=== PATIENT | female | born 2000 | race Caucasian/White ===

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

== ENCOUNTER → 2022-04-19 08:57 | Outpatient (BNVA) | payer MEDICAID, SELFPAY | PROVIDERS: Family Provider Family Medicine; PCP Family Medicine; Visit Provider Nurse Practitioner Women's Health | DX: Z34.90 Encounter for supervision of normal pregnancy, unspecified, unspecified trimester (principal); F33.1 Major depressive disorder, recurrent, moderate | CPT/HCPCS: 81000 ==

== ENCOUNTER → 2022-05-07 15:00 | Outpatient (BNVA) | payer MEDICAID, SELFPAY | PROVIDERS: Family Provider Family Medicine; PCP Family Medicine; Visit Provider Obstetrics & Gynecology | DX: Z34.90 Encounter for supervision of normal pregnancy, unspecified, unspecified trimester (principal) | CPT/HCPCS: 82950; 84315; 85025; 85027; 87340 ==

== ENCOUNTER → 2022-05-12 09:00 | Outpatient (BNVA) | payer MEDICAID, SELFPAY | PROVIDERS: Family Provider Family Medicine; PCP Family Medicine; Visit Provider Obstetrics & Gynecology | DX: Z34.90 Encounter for supervision of normal pregnancy, unspecified, unspecified trimester (principal) | CPT/HCPCS: 82951; 82952 ==

== ENCOUNTER → 2022-05-19 09:19 | Outpatient (BNVA) | payer MEDICAID, SELFPAY | PROVIDERS: Family Provider Family Medicine; PCP Family Medicine; Visit Provider Obstetrics & Gynecology | DX: Z36.9 Encounter for antenatal screening, unspecified (principal) | CPT/HCPCS: 76816 ==

== ENCOUNTER → 2022-06-04 15:54 | Outpatient (BNVA) | payer MEDICAID, SELFPAY | PROVIDERS: Family Provider Family Medicine; PCP Family Medicine; Visit Provider Obstetrics & Gynecology | DX: Z34.90 Encounter for supervision of normal pregnancy, unspecified, unspecified trimester (principal) | CPT/HCPCS: 84315; 85025 ==

== ENCOUNTER → 2022-06-18 14:58 | Outpatient (BNVA) | payer MEDICAID, SELFPAY | PROVIDERS: Family Provider Family Medicine; PCP Family Medicine; Visit Provider Nurse Practitioner Women's Health | DX: Z34.93 Encounter for supervision of normal pregnancy, unspecified, third trimester (principal) | CPT/HCPCS: 81000 ==

== ENCOUNTER → 2022-06-29 10:30 | Outpatient (BNVA) | payer MEDICAID, SELFPAY | PROVIDERS: Family Provider Family Medicine; PCP Family Medicine; Visit Provider Obstetrics & Gynecology | DX: Z34.93 Encounter for supervision of normal pregnancy, unspecified, third trimester (principal) | CPT/HCPCS: 84315; 87081 ==

== ENCOUNTER 2022-07-09 16:01 | Outpatient (CLI) | payer MEDICAID, SELFPAY ==
--- NOTE | 2022-07-09 16:28 | ECG_ITS ---
[facility] Test Date: 2022-07-09 Pat Name: Flaquita Webb Department: Room: Gender: Female Travel Guide: : 2000 Requested By: Tyron Silva Order Number: [id number] Janene MD: Yves Page M.D. Measurements Intervals [place] Rate: 108 P: 4 ME: 111 QRS: 56 QRSD: 82 T: -6 QT: 297 QTc: 399 Interpretive Statements SINUS TACHYCARDIA WITH SHORT ME INTERVAL NONSPECIFIC T-WAVE ABNORMALITY No previous ECG available for comparison Electronically Signed On 07-09-2022 17:06:44 CDT by Yves Page M.D. [id number]
== END 2022-07-09 16:02 | disposition home or self-care (01) ==
PROVIDERS: PCP Family Medicine; Visit Provider Obstetrics & Gynecology
DX: O99.419 Diseases of the circulatory system complicating pregnancy, unspecified trimester (principal); R00.2 Palpitations; R00.0 Tachycardia, unspecified; Z3A.00 Weeks of gestation of pregnancy not specified
CPT/HCPCS: 81000; 93005

== ENCOUNTER → 2022-07-16 14:30 | Outpatient (BNVA) | payer MEDICAID, SELFPAY | PROVIDERS: PCP Family Medicine; Visit Provider Obstetrics & Gynecology | DX: Z34.90 Encounter for supervision of normal pregnancy, unspecified, unspecified trimester (principal) | CPT/HCPCS: 84315 ==

== ENCOUNTER → 2022-07-27 09:23 | Outpatient (BNVA) | payer MEDICAID, SELFPAY | PROVIDERS: PCP Family Medicine; Visit Provider Obstetrics & Gynecology | DX: Z34.90 Encounter for supervision of normal pregnancy, unspecified, unspecified trimester (principal) | CPT/HCPCS: 81000 ==

== ENCOUNTER 2022-07-29 17:46 | Inpatient (IN) | payer MEDICAID, SELFPAY ==
[2022-07-29] VITALS (10 sets, daily range): BP systolic 101–124; BP diastolic 55–84; PULSE 80–107; RESP 16; BMI 29.9
[2022-07-29 19:03] LABS: Basophils % 0.1 %; Eosinophils # 0.1 10^3/uL (0.0-0.8); Eosinophils % 1.1 %; Hematocrit 29.4 % (37.0-47.0); Hemoglobin 9.2 g/dL (11.5-15.3); Lymphocytes # 2.1 10^3/uL (1.5-6.5); Lymphocytes % 18.6 %; Mean Corpuscular HGB Conc 31.3 g/dL (30.0-36.0); Mean Corpuscular Hemoglobin 26.9 pg (28.0-34.0); Mean Platelet Volume 10.7 fL (7.4-10.4); Monocytes # 0.8 10^3/uL (0.2-0.9); Monocytes % 6.7 %; Neutrophils # 8.26 10^3/uL (1.8-8.0); Neutrophils % 73.2 %; Nucleated Red Blood Cells % 0 %; Platelet Count 330 10^3/cmm (130-400); Red Blood Count 3.42 10^6/uL (4.1-5.3); Red Cell Distribution Width 14.6 % (12.1-15.1); White Blood Count 11.3 10^3/uL (4.5-13.0)
[2022-07-29 19:18] LABS: Slide Review Slide Review Perform
[2022-07-29] MEDS: miSOPROStol 100 mcg tablet 25 MCG VAGINAL (19:57)
[2022-07-29] MEDS: acetaminophen 325 mg Tablet 650 MG PO (20:08)
[2022-07-29] MEDS: alum-mag-hydroxide-sime 30 mL UDC PO (22:13)
[2022-07-30] VITALS (82 sets, daily range): BP systolic 88–137; BP diastolic 51–84; PULSE 65–116; RESP 14–17; TEMP 36.8; O2SAT 94–99
[2022-07-30] MEDS: miSOPROStol 100 mcg tablet 25 MCG VAGINAL ×2 (00:32→04:38)
[2022-07-30] MEDS: TRAMadol 50 mg Tablet PO (00:56)
[2022-07-30] MEDS: alum-mag-hydroxide-sime 30 mL UDC PO (06:01)
[2022-07-30] MEDS: fentaNYL 50 mcg/mL INJ 2mL IVP (08:26)
[2022-07-30] MEDS: ondansetron 2 mg/ML SDV 2 mL 4 MG IVP ×2 (08:40→18:01)
[2022-07-30] MEDS: dextrose 5%-lactated ringers 1,000 ML 125 ML IV (08:41)
[2022-07-30] MEDS: lactated ringers 1,000 ML 999 ML IV ×2 (08:44→10:18)
--- NOTE | 2022-07-30 10:23 | ANES.PREANE2 ---
Pre-Anesthetic Assessment Height/Weight: Height 1.73 m Weight 89.358 kg Pulse Resp BP Pulse Ox O2 Del Method 86 17 137/75 98 Room Air 07/30/22 10:17 07/30/22 08:26 07/30/22 10:12 07/30/22 10:17 07/29/22 18:12 Familial anesthetic complications: none Was Beta Nick taken within 24 hours: N/A Was Clonidine taken within 24 hours: N/A Social No alcohol and No tobacco Exam alert, oriented x 3, clear to auscultation bilaterally and regular rate & rhythm Airway Submandibular: within normal limits Cervical ROM: within normal limits Mallampati: Class II Dentition: full Neuropsych Anxiety and Depression Anesthetic Plan ASA status: 2 Anesthesia: Regional (specify below) (Labor Epidural) Medications/Allergies Home Medications Medication Instructions Recorded Confirmed Last Taken Type prenat.vits,radha,sij-embw-jvylh 1 tab PO DAILY 04/19/22 07/29/22 Unknown History famotidine 20 mg PO PRN PRN (Drug) Ingestion 07/29/22 07/29/22 07/28/22 21:00 History Allergies Allergy/AdvReac Type Severity Reaction Status Date / Time Sulfa (Sulfonamide Allergy Rash, Verified 07/29/22 18:18 Antibiotics) issues breathing Current Medications Generic Name Dose Route Start Last Admin Trade Name Freq PRN Reason Stop Dose Admin Acetaminophen 650 mg 07/29/22 18:35 07/29/22 20:08 Acetaminophen 325 Mg Tablet PO 650 mg Q6H PRN Administration MILD TO MODERATE PAIN Al Hydrox/Mg Hydrox/Simethicone 30 ml 07/29/22 18:35 07/30/22 06:01 Udhe-Ciz-Vxfrtmeqc-Boo 30 Ml Udc PO 30 ml Q4H PRN Administration INDIGESTION Fentanyl 25 - 100 mcg 07/29/22 18:35 07/30/22 08:26 Fentanyl 50 Mcg/Ml Inj 2ml IVP 25 mcg Q1H PRN Administration SEVERE PAIN Dextrose/Lactated Ringer's 1,000 mls @ 125 mls/hr 07/29/22 18:35 07/30/22 08:41 Dextrose 5%-Lactated Ringers IV 125 mls/hr .Q8H PRN Administration per label comments Lactated Ringer's 1,000 mls @ 999 mls/hr 07/30/22 08:56 07/30/22 10:18 Lactated Ringers IV 999 mls/hr .Q1H1M PRN Administration See label comments Ropivacaine 100 mg in 50 mls @ 10 mls/hr 07/30/22 08:56 07/30/22 09:52 Naropin Syringe EPIDURAL 10 mls/hr .Q5H PRN Administration LABOR PAIN Ondansetron HCl 4 mg 07/29/22 18:35 07/30/22 08:40 Ondansetron 2 Mg/Ml Sdv 2 Ml IVP 4 mg Q4H PRN Administration NAUSEA AND VOMITING PFSH Anesthesia Medical History Major depressive disorder, recurrent, moderate Diagnosed in 2019 and controlled on medications managed by behavioral health care. No pertinent past medical history Denies diabetes, asthma, hypertension, seizures, DVT/PE PCP: Dr. Syed Surgical History No history of previous surgery Family History Grandmother Diabetes Maternal grandmother and maternal great grandmother Thyroid condition maternal Ovarian cancer maternal, diagnosed at age 70 Breast cancer maternal great grandmother Heart disease paternal Family/Other Diabetes maternal aunts Thyroid condition maternal aunt Breast cancer maternal great aunt Heart disease patenernal uncle Grandfather Diabetes Paternal grandfather and paternal great grandfather Hyperlipidemia maternal Hypertension maternal Stroke maternal great grandfather Colon cancer maternal, diagnosed at age 36 Heart disease paternal and maternal Mother Thyroid condition Denies family history of Uterine cancer Social History Smoking and tobacco status: never smoked Substance/Drug Use: never Additional social history: . Female Reproductive History : 1 Spontaneous abortions: No Data Anesthesia 07/29/22 18:10 Short CBC 07/29/22 Range/Units 18:10 WBC 11.3 (4.5-13.0) 10^3/uL Hgb 9.2 L (11.5-15.3) g/dL Hct 29.4 L (37.0-47.0) % MCV 86.0 (81-99) fl Plt Count 330 (130-400) 10^3/cmm Neut % (Auto) 73.2 % Neut # (Auto) 8.26 H (1.8-8.0) 10^3/uL Cardiac Studies: No Data to Display Anesthesia Procedures Epidural Time Out Performed: Yes Consents Signed: Procedure Consent Consent: requested by attending/covering physician, from patient, risks and benefits reviewed and patient agrees to proceed Lumbar Level: L3-L4 Epidural procedure: sterile prep of area, 1% lidocaine to numb the area, 18 g needle, neg for paresthesia, test dose given, 1.5% xylocaine 1:200k epi, 0.2% Ropivacaine bolus ml (5), placed PCEA, no systemic response, sterile dressing applied and 0.2% Ropiavacaine @ mls/hr (10) Additional Comments: QIANA at 4cm, cath at 9cm
[2022-07-30] MEDS: lidocaine 2% INJ 20 mL INJECTION (18:38)
--- NOTE | 2022-07-30 19:12 | PM.OBGYHP ---
Providers/Chief Complaint Admitting Physician: Lobito Dietz MD Primary EXECUTIVE MEETING MANAGER: Tyron Delacruz MD Primary Care Provider: Jackie Dumont MD Chief Complaint: IOL HPI EXECUTIVE MEETING MANAGER History of Present Illness Flaquita Webb is a 22 year old female G1 at 40 w 1 d no complications admitted for elective induction of labor no c/o GBS negative Present Details : 1 Para: 0 Medications/Allergies Home Medications Medication Instructions Recorded Confirmed Last Taken Type prenat.vits,radha,wzu-fmlw-josdp 1 tab PO DAILY 04/19/22 07/29/22 Unknown History famotidine 20 mg PO PRN PRN (Drug) Ingestion 07/29/22 07/29/22 07/28/22 21:00 History Allergies Allergy/AdvReac Type Severity Reaction Status Date / Time Sulfa (Sulfonamide Allergy Rash, Verified 07/29/22 18:18 Antibiotics) issues breathing PFSH EXECUTIVE MEETING MANAGER PFSH: Medical History Major depressive disorder, recurrent, moderate Diagnosed in 2019 and controlled on medications managed by behavioral health care. No pertinent past medical history Denies diabetes, asthma, hypertension, seizures, DVT/PE PCP: Dr. Syed Surgical History No history of previous surgery Family History Grandmother Diabetes Maternal grandmother and maternal great grandmother Thyroid condition maternal Ovarian cancer maternal, diagnosed at age 70 Breast cancer maternal great grandmother Heart disease paternal Family/Other Diabetes maternal aunts Thyroid condition maternal aunt Breast cancer maternal great aunt Heart disease patenernal uncle Grandfather Diabetes Paternal grandfather and paternal great grandfather Hyperlipidemia maternal Hypertension maternal Stroke maternal great grandfather Colon cancer maternal, diagnosed at age 36 Heart disease paternal and maternal Mother Thyroid condition Denies family history of Uterine cancer Social History Smoking and tobacco status: never smoked Substance/Drug Use: never Additional social history: . History History History 1 Term Miscarriages/Ectopic Living Children Care RAFAELA Calculator Estimated Delivery Date Method Current WG Current Estimate 07/28/22 LMP (Certain) 40w 2d Expected Delivery Route/Plan plan vaginal delivery; expectant management Vitals/I&O/Wt Last Vital Signs Pulse 90 07/30/22 17:52 Resp 17 07/30/22 08:26 BP 122/78 07/30/22 17:52 Pulse Ox 98 07/30/22 10:17 O2 Del Method Room Air 07/29/22 18:12 07/30/22 07/30/22 07/30/22 06:59 14:59 22:59 Intake Total 1000 / 1000 1050 / 1050 Balance 1000 / 1000 1050 / 1050 Weight last 48 hrs Weight 197 lb Physical Exam Const: COMMON NORMALS: no acute distress, average body habitus, patient oriented x3, healthy appearing and alert HENMT: COMMON NORMALS: normocephalic and hearing grossly normal bilaterally Eye: COMMON NORMALS: Equal, round and reactive pupils present Chest: COMMONS NORMALS: normal inspection of the chest Resp: COMMON NORMALS: normal respiratory effort Cardio: COMMON NORMALS: regular rate and regular rhythm GI: OTHER: gravid : OTHER: Cx: 1 cm / 50% / -4 / posterior Extremity: COMMON NORMALS: normal to inspection Urinary Catheter Management: [place]: Cath Placed During This Visit: yes Urinary Catheter Date of Insertion: 07/30/22 Urinary Catheter Time of Insertion: 10:41 Data 07/29/22 18:10 A&P Assessment and plan (1) Supervision of normal in third trimester: fetus reassuring plan cytotec 25 ug intravaginal Attestations Medical Necessity Statement*: patient at 40w1d admitted for labor induction Coding Level of Care Code Acute Code for Chg Fwd Diagnoses Supervision of normal in third trimester Z34.93 Time Spent (min) 30
[2022-07-30] MEDS: lanolin oint 7 gm 1 APPLIC TOPICAL (21:22)
[2022-07-30] MEDS: benzocaine-menthol 78 gm Canister 1 SPRAY TOPICAL (21:22)
[2022-07-30] MEDS: ibuprofen 800 mg tablet PO (21:23)
[2022-07-30] MEDS: HYDROcodone-acetaminophen 5-325 mg Tablet PO (21:23)
--- NOTE | 2022-07-30 22:01 | ANE.PACU2 ---
Inpatient post-anesthesia follow up: Airway intact: Yes Vital signs: Temperature 98.3 F Pulse Rate 89 Respiratory Rate 15 Blood Pressure 110/70 Pulse Oximetry 98 Oxygen Delivery Me thod Room Air Oxygen Flow Rate Fraction of Inspir ed Oxygen Hydration adequate: Yes Nausea and vomiting: No Pain level: 2 Mental status: Baseline
[2022-07-31 00:30] VITALS: BP 95/65; PULSE 66; RESP 16
[2022-07-31 02:30] VITALS: BP 98/60; PULSE 72; RESP 15
[2022-07-31 04:30] VITALS: BP 109/71; PULSE 78; RESP 15; TEMP 36.5; O2SAT 99
[2022-07-31] MEDS: HYDROcodone-acetaminophen 5-325 mg Tablet PO ×2 (06:12→12:20)
[2022-07-31 06:31] LABS: Hematocrit 34.4 % (37.0-47.0); Hemoglobin 10.7 g/dL (11.5-15.3); Mean Corpuscular HGB Conc 31.1 g/dL (30.0-36.0); Mean Corpuscular Volume 86.6 fl (81-99); Mean Platelet Volume 10.5 fL (7.4-10.4); Platelet Count 224 10^3/cmm (130-400); Red Blood Count 3.97 10^6/uL (4.1-5.3); Red Cell Distribution Width 14.5 % (12.1-15.1); White Blood Count 11.4 10^3/uL (4.5-13.0)
--- NOTE | 2022-07-31 06:56 | PM.DELIVERY ---
Delivery Note: Date of delivery: July 30, 2022 Pre-delivery diagnoses: 40w2d gestation labor induction Post-delivery diagnoses: same, delivered Procedure: spontaneous vaginal delivery repair of second-degree perineal laceration Op report anesthesia: Epidural Delivering Physician: Lobito Dietz MD Estimated blood loss (mL): 300 Findings: vigorous femal normal placenta and cord cord gases and blood obtained no episiotomy second-degree perineal laceration repaired Pre-Delivery Course: patient received three doses of cytotec, progressed to complete cervical dilatation Delivery: spontaneous vaginal delivery Post-Delivery Status: good History History History 1 Term Miscarriages/Ectopic Living Children A&P Assessment and plan (1) Normal vaginal delivery: Coding Level of Care Code Acute Code for Chg Fwd Diagnoses Normal vaginal delivery O80 Time Spent (min) 60
[2022-07-31] MEDS: prenatal vitamin Capsule 1 CAP PO (09:17)
[2022-07-31] MEDS: docusate sodium 100 mg Capsule PO (09:17)
[2022-07-31] MEDS: ibuprofen 800 mg tablet PO ×2 (09:17→15:52)
[2022-07-31 09:21] VITALS: BP 109/74; PULSE 101; RESP 18; TEMP 36.5
[2022-07-31 15:55] VITALS: BP 113/68; PULSE 92; RESP 17; TEMP 36.7; O2SAT 97
--- NOTE | 2022-07-31 16:29 | PM.OBGYDC ---
Discharge Providers PRINCIPAL STRATEGIST Date of Admission: 07/29/22 17:46 Date of Discharge: 07/31/22 Attending Provider at Admission: Lobito Dietz MD Attending Provider at Discharge: Lobito Dietz MD Primary Care Provider: Jackie Dumont MD Diagnoses at Discharge Discharge Diagnosis (1) Normal vaginal delivery: Details from hospital stay: patient had vaginal delivery of vigorous female infant second-degree perineal laceration repaired no complications Status: Resolved Reason for Visit Reason for Visit: IOL Information Peripartum Data: Delivery Method: Vaginal Laceration description: Perineal - 2nd Degree complications: none Physical Exam Urinary Catheter Management: [place]: Cath Placed During This Visit: yes, but has since been removed by the nurse Reason for Continuing Indwelling Catheter: Decision to DC Catheter Urinary Catheter Date of Insertion: 07/30/22 Urinary Catheter Time of Insertion: 10:41 Date Urinary Catheter Removed: 07/30/22 Time Urinary Catheter Discontinued: 15:50 History History History 1 Term Miscarriages/Ectopic Living Children Discharge Data Studies Completed and Pending Laboratory Results WBC 11.4 10^3/uL (4.5-13.0) 07/31/22 06:20 RBC 3.97 10^6/uL (4.1-5.3) L 07/31/22 06:20 Hgb 10.7 g/dL (11.5-15.3) L 07/31/22 06:20 Hct 34.4 % (37.0-47.0) L 07/31/22 06:20 MCV 86.6 fl (81-99) 07/31/22 06:20 MCH 27.0 pg (28.0-34.0) L 07/31/22 06:20 MCHC 31.1 g/dL (30.0-36.0) 07/31/22 06:20 RDW 14.5 % (12.1-15.1) 07/31/22 06:20 Plt Count 224 10^3/cmm (130-400) 07/31/22 06:20 MPV 10.5 fL (7.4-10.4) H 07/31/22 06:20 Neut % (Auto) 73.2 % 07/29/22 18:10 Lymph % (Auto) 18.6 % 07/29/22 18:10 [place] % (Auto) 6.7 % 07/29/22 18:10 Eos % (Auto) 1.1 % 07/29/22 18:10 Baso % (Auto) 0.1 % 07/29/22 18:10 Neut # (Auto) 8.26 10^3/uL (1.8-8.0) H 07/29/22 18:10 Lymph # (Auto) 2.1 10^3/uL (1.5-6.5) 07/29/22 18:10 [place] # (Auto) 0.8 10^3/uL (0.2-0.9) 07/29/22 18:10 Eos # (Auto) 0.1 10^3/uL (0.0-0.8) 07/29/22 18:10 Baso # (Auto) 0.0 10^3/uL (0.0-0.1) 07/29/22 18:10 Nucleated RBC % (auto) 0 % 07/29/22 18:10 Nucleated RBCs # 0.0 /100WBC 07/29/22 18:10 Procedures Performed Induction of Labor Vaginal delivery Repair of second-degree perineal laceration Vitals Last Vital Signs Temp 98.3 F 07/31/22 19:59 Pulse 77 07/31/22 19:59 Resp 15 07/31/22 19:59 BP 97/59 07/31/22 19:59 Pulse Ox 99 07/31/22 19:59 O2 Del Method Room Air 07/31/22 15:55 Discharge Plan Discharge Patient Disposition: Home Condition: Stable Prescriptions: New Percocet 5-325 mg tablet 1 tab PO Q8H PRN (Reason: pain) Qty: 14 0RF Continued prenat.vits,radha,esu-yros-iwtqe Tablet 1 tab PO DAILY famotidine 20 mg PO PRN PRN (Reason: (Drug) Ingestion) Discharge Orders: Discharge Order (Routine); Ordered 07/31/22 Ordered By: Lobito Dietz Referrals: Tyron Delacruz MD [Physician] - (Call the clinic tuesday morning and make an appointment for 6 weeks postpartm. ) Discharge Diet: Usual diet Discharge Activity: Increase activity as tolerated Patient Instructions: Depression (DC), Your Baby (DC), Hemorrhage (DC), OB Care at Home, Opioid Safety, Abnormal Bleeding Activity Restrictions/Additional Instructions: call/return if pain, heavy bleeding, fever, chills, perineal pain or swelling Discharge Attestations PRINCIPAL STRATEGIST Time Spent in Discharge Care*: less than 30 min Coding Level of Care Code Acute Code for Chg Fwd Diagnoses Normal vaginal delivery O80 Time Spent (min) 20
[2022-07-31 19:59] VITALS: BP 97/59; PULSE 77; RESP 15; TEMP 36.8; O2SAT 99
== END 2022-07-31 19:52 | disposition home or self-care (01) | DRG 806 ==
LOC: OPOB 17:46 → OBGYN 07-30 08:49
PROVIDERS: Admitting Provider Obstetrics & Gynecology; PCP Family Medicine; Visit Provider Obstetrics & Gynecology
DX: O48.0 Post-term pregnancy (principal); F33.1 Major depressive disorder, recurrent, moderate; Z37.0 Single live birth; Z3A.40 40 weeks gestation of pregnancy; O99.344 Other mental disorders complicating childbirth; O70.1 Second degree perineal laceration during delivery; F41.9 Anxiety disorder, unspecified
CPT/HCPCS: 36415; 51702; 59025; 59409; 85025; 85027; 96374; 96375; 96376; 99211; J2405; J2795; J3010; J7040; J7120; J7121

== ENCOUNTER → 2022-12-17 10:52 | Outpatient (BNVA) | payer MEDICAID, SELFPAY | PROVIDERS: PCP Family Medicine; Visit Provider Obstetrics & Gynecology | DX: Z30.011 Encounter for initial prescription of contraceptive pills (principal); Z39.2 Encounter for routine postpartum follow-up | CPT/HCPCS: 84443 ==

== ENCOUNTER 2023-11-28 15:15 | Outpatient (CLI) | payer MEDICAID, SELFPAY | END 2023-11-28 15:16 | disposition home or self-care (01) | LOC: LAB 15:18 | PROVIDERS: PCP Obstetrics & Gynecology; Visit Provider Obstetrics & Gynecology | DX: N92.6 Irregular menstruation, unspecified (principal) | CPT/HCPCS: 36415; 84702 ==

== ENCOUNTER → 2023-12-19 15:38 | Outpatient (BNVA) | payer MEDICAID, SELFPAY | PROVIDERS: PCP Obstetrics & Gynecology; Visit Provider Obstetrics & Gynecology | DX: R63.4 Abnormal weight loss (principal) | CPT/HCPCS: 80053; 84443; 85025 ==

== ENCOUNTER → 2024-03-07 10:04 | Outpatient (BNVA) | payer OTHER, SELFPAY | PROVIDERS: PCP Obstetrics & Gynecology; Visit Provider Internal Medicine | DX: E16.1 Other hypoglycemia (principal); R68.89 Other general symptoms and signs; R63.4 Abnormal weight loss; R00.0 Tachycardia, unspecified | CPT/HCPCS: 36415; 82533; 82784; 83036; 83516; 84439; 84443; 86376; 86800 ==